=== PATIENT | female | born 1965 | race Caucasian/White ===

== ENCOUNTER 2017-10-03 15:29 | Emergency (ER) | END 2017-10-03 16:04 | disposition home or self-care (01) ==

== ENCOUNTER 2018-10-30 12:03 | Day surgery (SDC) | payer OTHER ==
[~2018-10-30] VITALS: Ht 152.4 cm; Wt 68.3 kg
[~2018-10-30 12:03] MED LIST: AMOX500C2 PO; CYCL10TA7 PO; IBUP-1561 PO; NAPR-985 PO; PROPOFOL 200 MG INJ ONE; TRAM50TA2 PO
[2018-10-30 12:47] VITALS: Ht 152.4 cm; Wt 68.3 kg
[2018-10-30 13:43] VITALS: BP 116/56; PULSE 67; RESP 23
--- NOTE | 2018-10-30 13:46 | PREAC ---
Date/Time of Note Date/Time of Note DATE: 10/30/18 TIME: 13:45 Anesthesia Eval and Record Evaluation Time Pre-Procedure Interview DATE: 10/30/18 TIME: 13:45 Age 52 Sex female NPO: 8 hrs Preoperative diagnosis SCREENING Planned procedure COLONOSCOPY Past Medical History Past Medical History: Includes GI: Obesity Surgery & Anesthesia Issues No known issue Meds Anticoagulation: No Beta Esperanza within 24 hr: No Reason Beta Esperanza not given: Pt. not on B-Esperanza Discontinued Scripts Ibuprofen* (Motrin*) 400 Mg Tab, 400 MG PO Q6, #30 TAB Prov:JIM MCHUGH PA-C 10/03/17 Amoxicillin* (Amoxicillin*) 500 Mg Cap, 500 MG PO BID for 10 Days, CAP Prov:JIM MCHUGH PA-C 10/03/17 Naproxen* (Naprosyn*) 500 Mg Tablet, 500 MG PO BID PRN for PAIN AND/OR INFLAMMATION, #14 TAB Prov:GLORIA CABRERA PA-C 08/14/16 Tramadol HCl (Tramadol HCl) 50 Mg Tablet, 50 MG PO Q4 PRN for PAIN, #10 TAB Prov:GLORIA CABRERA PA-C 08/14/16 Cyclobenzaprine Hcl* (Cyclobenzaprine Hcl*) 10 Mg Tablet, 10 MG PO BID, #10 TAB Prov:GLORIA CABRERA PA-C 08/10/16 Naproxen* (Naprosyn*) 500 Mg Tablet, 500 MG PO BID PRN for PAIN AND/OR INFLAMMATION, #30 TAB Prov:GLORIA CABRERA PA-C 08/10/16 Tramadol HCl (Tramadol HCl) 50 Mg Tablet, 50 MG PO Q4 PRN for PAIN, #20 TAB Prov:GLORIA CABRERAC 08/10/16 Meds reviewed: Yes Allergies Coded Allergies: No Known Allergy (Unverified , 10/30/18) Allergies Reviewed: Yes Labs/Studies Labs Reviewed: Reviewed by anesthesiologist test: Negative Pre-procedure Exam Airway: Adequate mouth opening, Adequate thyromental dist Mallampati: Mallampati II Teeth: Normal Lung: Normal Heart: Normal ASA Physical Status ASA physical status: 2 Emergency: None Planned Anesthetic General/MAC: MAC Planned Pain Management Parenteral pain med Pre-operative Attestations Prior to commencing anesthesia and surgery, the patient was re-evaluated, there was verification of: *The patient's identity *The results of appropriate recent lab work and preoperative vital signs *The above evaluation not changing prior to induction *Anesthetic plan, risk benefits, alternative and complications discussed with patient/family; questions answered; patient/family understands, accepts and wishes to proceed. ROMERO JONES Oct 30, 2018 13:46
[2018-10-30] MEDS ORDERED: LIDOCAINE 2% (SDV) 5 ML INJ ONE (13:48)
[2018-10-30] MEDS ORDERED: PROPOFOL 60 ML ONE (13:48)
[2018-10-30] MEDS ORDERED: EPHEDrine SULFATE 50 MG/5 ML SYG IV PRN (14:00)
[2018-10-30] MEDS ORDERED: hydrALAzine 20 MG INJ IV PRN (14:00)
[2018-10-30] MEDS ORDERED: ONDANSETRON 4 MG INJ IV PRN (14:00)
[2018-10-30] MEDS ORDERED: LABETALOL HCL 20MG INJ IV PRN (14:00)
[2018-10-30] MEDS ORDERED: FENTAnyl 50 MCG/ML VIAL IV PRN (14:00)
--- NOTE | 2018-10-30 15:35 | HPN ---
Date/Time of Note Date/Time of Note DATE: 10/30/18 TIME: 15:35 Interval H&P Admission Note Pt. seen H&P reviewed: No system changes HOUSTON COUGHLIN Oct 30, 2018 15:35
--- NOTE | 2018-10-30 15:40 | PAC ---
Date/Time of Note Date/Time of Note DATE: 10/30/18 TIME: 15:40 Post-Anesthesia Notes Post-Anesthesia Note Last documented vital signs Vital Signs Date Temp Pulse Resp B/P (MAP) Pulse Ox O2 O2 Flow FiO2 Time Delivery Rate 10/30/18 98.4 67 23 116/56 99 Room Air 1540 (76) Activity: WNL Respiratory function: WNL Cardiovascular function: WNL Mental status: Baseline Pain reasonably controlled: Yes Hydration appropriate: Yes Nausea/Vomiting absent: Yes ROMERO JONES Oct 30, 2018 15:40
== END 2018-10-30 16:25 | disposition home or self-care (01) ==
LOC: GIL 12:03
PROVIDERS: ATTEND Internal Medicine Gastroenterology
DX: Z12.11 Encounter for screening for malignant neoplasm of colon (principal); K64.8 Other hemorrhoids; E66.9 Obesity, unspecified; Z68.29 Body mass index [BMI] 29.0-29.9, adult
CPT/HCPCS: 45378; 84703; Z7610